=== PATIENT | female | born 1995 | race Caucasian/White ===

== ENCOUNTER 2017-04-09 10:42 | Emergency (ER) | payer OTHER ==
[~2017-04-09] VITALS: Ht 152.4 cm; Wt 47.6 kg
--- NOTE | ~2017-04-09 | CR117 ---
[facility] A Service of [facility] RADIOLOGY TEXT RESULTS PATIENT: TRUDY HESS LOCATION: SED : 95 UNIT #: [id number] AGE: [address]: MANAN ADAN SEX: F ORDER DR: [id number] [address] [address] [id number] E MR#: [id number] Acc #: [id number] NAME: TRUDY HESS : 1995 SEX: F STUDY DATE/TIME: 04/09/2017 11:01 UNIT: SED ROOM: STUDY DESCRIPTION: CR Finger 2 View Thumb Rt Attending Physician: Pat Garduno Ordering Physician: Didier Not Listed Primary Care Physician: Claude Mullins M.D. MEDICAL IMAGING REPORT This report is preliminary unless electronic signature is present. EXAM Right thumb INDICATIONS Right thumb pain after smashing it in car door yesterday. FINDINGS Three views of the right thumb were obtained. No fracture is identified. The bones are normal. IMPRESSION Normal right thumb. Dictated by... Ricardo Rod M.D. THIS IS AN ELECTRONICALLY VERIFIED REPORT Ricardo Rod M.D. at 04/11/2017 6:16 AM Renuka TD: 04/10/2017 12:52 JOB #: [id number] MEDICAL IMAGING REPORT Page 1 of 1
[~2017-04-09 10:42] MED LIST: DICYCLOMINE HCL20 MG PO; TYLENOL #3 PO; ZOFRAN PO
== END 2017-04-09 12:51 | disposition home or self-care (01) ==
LOC: SED 10:42
DX: S60.111A Contusion of right thumb with damage to nail, initial encounter (principal); W23.0XXA Caught, crushed, jammed, or pinched between moving objects, initial encounter
CPT/HCPCS: 73140; 99283